=== PATIENT | female | born 1955 | race African-American/Black ===

== ENCOUNTER 2017-08-06 07:17 | Outpatient (CLI) | payer OTHER ==
--- NOTE | 2017-08-06 08:40 | CT ---
NONCONTRAST ENHANCED CT CHEST LOW DOSE CT LUNG SCAN SCREENING: HISTORY: Shortness of breath, history of breast cancer with mastectomy. FINDINGS: Contrast-enhanced CT of the chest is performed. Images demonstrate no evidence of mediastinal masses. Extensive coronary artery calcifications seen. Previously noted granuloma in the anterior aspect of the left upper lobe is again seen. There are now 2 subtle areas of ground-glass opacities in the posterior aspect of both lower lobes. There is an ill-defined soft tissue lesion diameter measuring approximately 9.6 mm in the left lower lobe posterior aspect image #[id number]. As this is a solid lesion more than 8 mm diameter. I am concerned that this may represent a malignancy. Findings compatible with a 4A-type lung RADS evaluation. I do recommend a repeat low-dose CT chest in 3 months or consider head CT for further imaging. There is also some anterior medial distal esophageal asymmetric soft tissue thickening. Further evaluation us ing direct visualization is recommended. Distal esophageal pathology including malignancy cannot be excluded. IMPRESSION: 1. Solid left lower lobe newly developed lesion. 2. Lung RADS 4A. Repeat low-dose CT in 3 months or consider PET CT evaluation of the chest. 3. Distal esophageal thickening. Correlate with direct visualization. POS: [facility]
== END 2017-08-06 07:18 | disposition home or self-care (01) ==
LOC: CT 07:17
PROVIDERS: ATTEND Internal Medicine Pulmonary Disease
DX: F17.211 Nicotine dependence, cigarettes, in remission (principal); R91.1 Solitary pulmonary nodule; K22.8 Other specified diseases of esophagus
CPT/HCPCS: G0297

== ENCOUNTER 2017-09-04 07:47 | Outpatient (CLI) | payer OTHER | END 2017-09-04 07:48 | disposition home or self-care (01) | LOC: BICMAMMO 07:47 | PROVIDERS: ATTEND Internal Medicine Medical Oncology | DX: N63.0 Unspecified lump in unspecified breast (principal) | CPT/HCPCS: 77066; G0204; G0279 ==

== ENCOUNTER 2017-09-13 08:00 | Outpatient (CLI) | payer OTHER ==
[2017-09-13] MEDS ORDERED: Gadobenate Dimeglumine 529 MG/1 ML (20ML VIAL) ONE (12:12)
[2017-09-19] MEDS ORDERED: Gadobenate Dimeglumine 529 MG/1 ML (20ML VIAL) ONE (16:04)
== END 2017-09-13 08:01 | disposition home or self-care (01) ==
LOC: BICMRI 08:00
PROVIDERS: ATTEND Internal Medicine Medical Oncology
DX: C50.911 Malignant neoplasm of unspecified site of right female breast (principal); Z92.29 Personal history of other drug therapy
CPT/HCPCS: 71552; A9579; C8908

== ENCOUNTER 2017-11-23 09:53 | Outpatient (CLI) | payer OTHER ==
--- NOTE | 2017-11-23 12:16 | CT ---
NONCONTRAST CHEST CT: Date: 11/23/17 HISTORY: Follow-up exam. Solitary pulmonary nodule. Screening study. COMPARISON: 08/06/17. TECHNIQUE: Noncontrast chest CT is performed in the axial plane. Coronal reformatted images are submitted for in terpretation. FINDINGS: Limited evaluation of the mediastinal structures due to lack of IV contrast. No mediastinal mass, lym phadenopathy, or hematoma. There are calcified left perihilar lymph nodes. Heart size is normal. No p ericardial effusion. There are coronary artery calcifications. Visualized aorta has a normal caliber. Visualized upper solid organs are unremarkable. Trachea and central bronchi are patent. Patchy opacities involving both lower lobes, similar to prior exam. There is interval development of a ground-glass nodule in the right lower lobe measuring 1.4 cm. The previously noted 1.0 cm nodule in the left lower lobe is less evident. Areas of scarring and atelectasis in the left and right lower l obe are identified. There is a 4.0 mm nodule in the right lower lobe. No pleural effusion or pneumoth orax. The previously suggested esophageal thickening is less evident on the current exam. Evaluation is rose ited due to inadequate esophageal distention. IMPRESSION: 1. Interval resolution of previously noted 1.0 cm nodule in the left lower lobe. 2. Redemonstration of patchy opacities throughout the lung parenchyma. 3. There is interval development of a ground-glass nodule in the right lower lobe measuring 1.4 cm. Three month follow-up CT is recommended, given that this opacity was not appreciated on the prior exa mination. POS: [facility]
== END 2017-11-23 09:54 | disposition home or self-care (01) ==
LOC: CT 09:53
PROVIDERS: ATTEND Internal Medicine Pulmonary Disease
DX: R91.1 Solitary pulmonary nodule (principal); R91.8 Other nonspecific abnormal finding of lung field
CPT/HCPCS: 71250

== ENCOUNTER 2018-10-16 08:52 | Outpatient (CLI) | payer OTHER | END 2018-10-16 08:53 | disposition home or self-care (01) | LOC: BICMAMMO 08:52 | PROVIDERS: ATTEND Internal Medicine Medical Oncology | DX: Z12.31 Encounter for screening mammogram for malignant neoplasm of breast (principal); N64.89 Other specified disorders of breast; Z85.3 Personal history of malignant neoplasm of breast | CPT/HCPCS: 77063; 77067 ==

== ENCOUNTER 2020-03-11 10:41 | Outpatient (CLI) | payer OTHER ==
--- NOTE | 2020-03-11 12:08 | MMO ---
Bilateral MAMMO Bilat Screen [facility]. CLINICAL HISTORY: Patient is 64 years old and is seen for screening. The patient has the following family history of breast cancer: sister, malignant (generic). The patient has a history of malignant (generic) in the right breast. The patient has a history of right Excisional Biopsy in 2001 - malignant and right Lumpectomy in 2002 - malignant. VIEWS: The views performed were: bilateral craniocaudal with tomosynthesis and bilateral mediolateral oblique with tomosynthesis. FILMS COMPARED: The present examination has been compared to prior imaging studies performed at [facility] on 08/10/2016, and at [facility] on 09/04/2017, 03/28/2018 and 10/16/2018. This study has been interpreted with the assistance of computer-aided detection. MAMMOGRAM FINDINGS: There are scattered fibroglandular densities. Finding 1: There are stable post operative changes seen in the right breast. Finding 2: There are stable benign appearing calcifications seen in both breasts. Finding 3: There are stable benign appearing densities seen in both breasts. There are no suspicious masses, suspicious calcifications, or new areas of architectural distortion. IMPRESSION: THERE IS NO MAMMOGRAPHIC EVIDENCE OF MALIGNANCY. A ROUTINE FOLLOW-UP MAMMOGRAM IN 1 YEAR IS RECOMMENDED. THE RESULTS OF THIS EXAM WERE SENT TO THE PATIENT. ACR BI-RADS Category 2 - Benign finding MAMMOGRAPHY NOTE: 1. A negative mammogram report should not delay a biopsy if a dominant of clinically suspicious mass is present. 2. Approximately 10% to 15% of breast cancers are not detected by mammography. 3. Adenosis and dense breasts may obscure an underlying neoplasm. Reported by: ZENON URIARTE MD Electonically Signed: [id number]
== END 2020-03-11 10:42 | disposition home or self-care (01) ==
LOC: BICMAMMO 10:41
PROVIDERS: ATTEND Family Medicine
DX: Z12.31 Encounter for screening mammogram for malignant neoplasm of breast (principal); Z85.3 Personal history of malignant neoplasm of breast; Z80.3 Family history of malignant neoplasm of breast; Z91.89 Other specified personal risk factors, not elsewhere classified; Z98.890 Other specified postprocedural states
CPT/HCPCS: 77063; 77067

== ENCOUNTER 2021-03-15 09:17 | Outpatient (CLI) | payer OTHER | END 2021-03-15 09:18 | disposition home or self-care (01) | LOC: BICMAMMO 09:17 | PROVIDERS: ATTEND Internal Medicine Medical Oncology | DX: Z12.31 Encounter for screening mammogram for malignant neoplasm of breast (principal); Z85.3 Personal history of malignant neoplasm of breast; Z98.890 Other specified postprocedural states; Z80.3 Family history of malignant neoplasm of breast | CPT/HCPCS: 77063; 77067 ==